=== PATIENT | female | born 1940 | race Caucasian/White ===

== ENCOUNTER → 2020-05-31 | Outpatient (CLI) | payer MEDICARE, BC ==
[2020-05-31 14:47] VITALS: PULSE 81; RESP 16; TEMP 98.1; BMI 44.8
[2020-05-31 14:49] VITALS: BP 146/81
--- NOTE | 2020-05-31 15:02 | P.BASOAP ---
Subjective Progress Note Date: 05/31/20 Principal diagnosis: Morbid obesity She with very poor follow-up. Had LAP-BAND 2008 at [facility]. Patient was seen by us in 2011. At that time she had 10 mL present in her 14 mL band. Patient states that since then she has had heart surgery. She believes her band was emptied and [facility] around that time. Describes decreased restriction. Increased weight gain. Was maintaining her weight in the high 170s. Currently to 45. Objective - Vital Signs Vital signs: Vital Signs Temp 98.1 F 05/31/20 14:47 Pulse 81 05/31/20 14:47 Resp 16 05/31/20 14:33 BP 146/81 05/31/20 14:47 Pulse Ox Intake & Output 05/30/20 05/31/20 05/31/20 18:59 06:59 18:59 Weight 111.13 kg - Exam Abdomen: Soft, nontender, nondistended Assessment/Plan (1) Morbid obesity Narrative/Plan: Patient interested in band adjustment will access the patient's band and consider increasing volume. The patient's lap band port was palpated. The site was aseptically prepped. The [place] needle was advanced into the port. A total of 7 mL ml of fluid was present already. We decided to add 2 additional cc at this time for a total of 9 mL. Previously she was at 10. Pressure was held and a sterile dressing was applied. Plan: Date: 05/31/20 Initial Weight: 120.202 kg Initial BMI: 48.4 Current Weight: 111.13 kg Current BMI: 44.8 Type of Surgery: Adjustable Gastric Banding Total Volume in Band: 9 Previous Volume: Volume Removed: Volume Added: 2 Band Size:
== END | disposition home or self-care (01) ==
LOC: BARWHC3 13:58
PROVIDERS: ATTEND Surgery
DX: E66.01 Morbid (severe) obesity due to excess calories (principal); Z46.51 Encounter for fitting and adjustment of gastric lap band; Z68.41 Body mass index [BMI] 40.0-44.9, adult
CPT/HCPCS: 99211